=== PATIENT | female | born 1995 | race Caucasian/White ===

== ENCOUNTER 2019-06-03 12:13 | Emergency (ER) | payer OTHER, SELFPAY ==
[2019-06-03 12:32] VITALS: BP 136/90; PULSE 110; RESP 18; TEMP 38.1; O2SAT 99
--- NOTE | 2019-06-03 15:47 | ED.URI ---
HPI - URI/Sore Throat General Chief Complaint: Upper Respiratory Infection Stated Complaint: fever/chills Time Seen by Provider: 06/03/19 13:27 Source: patient Mode of arrival: ambulatory Limitations: no limitations History of Present Illness HPI Narrative: Patient presents with chief complaint of sore throat, intermittent fever and body aches over the past week. Patient states that she saw her primary care who tested her for strep and states that it was sent for culture which she called and found out was negative. Patient states that she was also tested for influenza which she was told was negative at that time. Patient reports she has white patches on her throat and that it is sore. Patient does not have muffled or hoarse voice. Patient states the sore throat has affected her sleep. Patient denies vomiting or diarrhea. Patient denies she denies recent travel out of the country or known exposure to a person with coronavirus. Related Data Home Medications Medication Instructions Recorded Confirmed amoxicillin 06/03/19 Allergies Allergy/AdvReac Type Severity Reaction Status Date / Time No Known Allergies Allergy Verified 06/03/19 12:35 Review of Systems Review of Systems: Narrative: CONSTITUTIONAL: Reports intermittent fever, chills, denies sweats. EYES: Denies visual changes, redness, or discharge. ENT: Reports congestion, sore throat, denies otalgia. CARDIOVASCULAR: Denies chest pain, palpitations, or edema. RESPIRATORY: Denies cough or dyspnea. GASTROINTESTINAL: Denies abdominal pain, nausea, vomiting, or diarrhea. GENITOURINARY: Denies dysuria or hematuria. SKIN: Denies rash or itching. MUSCULOSKELETAL: Denies back pain, joint pain, or myalgia. NEUROLOGIC: Denies headache, numbness, dizziness, or weakness. PSYCHIATRIC: Denies anxiety or depression. PMFSH Social History Social History Gender identity (if verbalized by the patient): Female Exam Narrative: Exam Narrative: GENERAL: Well-appearing, well-nourished, and in no acute distress. HEAD: Normocephalic, atraumatic. EYES: PERRLA and EOMI. ENT: Nares clear, no rhinorrhea or epistaxis. Mucous membranes moist. Oropharynx with bilateral tonsillar hypertrophy and exudate. No uvular deviation bilateral TMs pearly lenz nonbulging NECK: Supple. No adenopathy or masses. No carotid bruits or JVD CHEST: Clear to auscultation. No respiratory distress. No wheezes rales or rhonchi HEART: Regular rate and rhythm. Normal peripheral pulses. EXTREMITIES: Normal range of motion. No edema. SKIN: Warm, dry, no rash. NEURO: No focal deficits. Alert and oriented x3. PSYCH: Normal mood and affect. Course Vital Signs Vital signs: Vital Signs Temperature 100.6 F H 06/03/19 12:32 Pulse Rate 110 H 06/03/19 12:32 Respiratory Rate 18 06/03/19 12:32 Blood Pressure 136/90 06/03/19 12:32 Pulse Oximetry 99 06/03/19 12:32 Temperature 100.6 F H 06/03/19 12:32 Pulse Rate 110 H 06/03/19 12:32 Respiratory Rate 18 06/03/19 12:32 Blood Pressure 136/90 06/03/19 12:32 Pulse Oximetry 99 06/03/19 12:32 MDM - URI/Sore Throat MDM Narrative Medical decision making narrative: Due to patient's erythematous tonsils with bilateral exudates. I have offered the patient mono testing as she has already tested negative for strep and influenza twice. Patient was also treated with amoxicillin by her primary care. patient declines mono testing. Patient requesting medication to help with throat swelling. Patient will give one-time dose of Decadron. Patient is able to handle her own secretions and is not hoarse or in tripod position. Patient is in no distress. Discussed with patient symptomatic treatment and follow-up with her primary care. Discussed with patient no contact sports due to possible mononucleosis infection. Patient states that she did have mono once in the past when she was a teenager. Differential Diagnosis Differential diagnosis: Likely upper r
== END 2019-06-03 16:32 | disposition home or self-care (01) ==
PROVIDERS: Emergency Provider Emergency Medicine; PCP Family Medicine
DX: B34.9 Viral infection, unspecified (principal)
CPT/HCPCS: 87081; 87804; 87880; 96372; 99283; J1100

== ENCOUNTER 2019-08-07 00:21 | Outpatient (CLI) | payer BC, SELFPAY | END 2019-08-07 00:22 | disposition home or self-care (01) | LOC: ANHCOVIDDT 00:22 | PROVIDERS: PCP Family Medicine; Visit Provider Otolaryngology | DX: Z01.812 Encounter for preprocedural laboratory examination (principal); Z11.59 Encounter for screening for other viral diseases | CPT/HCPCS: 87635; C9803; U0003 ==

== ENCOUNTER 2019-08-10 00:48 | Day surgery (SDC) | payer BC, SELFPAY ==
--- NOTE | 2019-08-03 11:59 | P.HP_ITS ---
History of Present Illness History of Present Illness Consent: Risks, benefits, and alternatives have been discussed and questions answered. Patient agrees to proceed with procedure. 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[employer] All systems reviewed & are unremarkable except as noted in HPI and below PMFSH Social History Social History Gender identity (if verbalized by the patient): Female Meds Home Medications and Allergies Home Medications Medication Instructions Recorded Confirmed Type alprazolam 0.5 mg tablet 0.5 mg PO TID 06/28/19 History elagolix 200 mg tablet 200 mg PO BID 06/28/19 History levonorgestrel 20 mcg/24 hours (5 1 device I-UTERINE ONCE 06/28/19 History yrs) 52 mg intrauterine device amoxicillin 500 mg capsule 500 mg PO Q8H #30 cap 07/22/19 Rx Allergies Allergy/AdvReac Type Severity Reaction Status Date / Time No Known Allergies Allergy Verified 06/28/19 13:11 Exam 2 HENMT: Other: has examination reveals enlarged tonsils they are markedly cryptic in nature mouth oropharynx otherwise is normal tongue is normal chest clear hilar murmurs Abusin soft tissues Zaiz negative hypertrophic tonsils and adenoids chronic tonsillitis plan tonsillectomy risks procedure been explained consent obtained
[2019-08-04 13:26] VITALS: BMI 35.4
--- NOTE | 2019-08-09 06:45 | P.HP_ITS ---
History of Present Illness History of Present Illness Consent: Risks, benefits, and alternatives have been discussed and questions answered. Patient agrees to proceed with procedure. Chief complaint: Chronic Tonsillitis/ Nasal Septal Deviation Narrative: Ana Hollis is a 24 year old female [facility] Social History Social History Gender identity (if verbalized by the patient): Female Meds Home Medications and Allergies Home Medications Medication Instructions Recorded Confirmed Type alprazolam 0.5 mg tablet 0.5 mg PO TID PRN 06/28/19 08/10/19 History elagolix 200 mg tablet 200 mg PO BID 06/28/19 08/10/19 History levonorgestrel 20 mcg/24 hours (5 1 device I-UTERINE ONCE 06/28/19 08/04/19 History yrs) 52 mg intrauterine device estradiol [Imvexxy Starter Pack] 10 mcg VAGINAL DAILY 08/04/19 08/10/19 History Allergies Allergy/AdvReac Type Severity Reaction Status Date / Time No Known Allergies Allergy Verified 08/10/19 06:47 Assessment and Plan Assessment and plan (1) Chronic tonsillitis: Code(s): J35.01 - Chronic tonsillitis Status: Acute Assessment and Plan: tonsillectomy septoplasty (2) Chronic sinusitis: Code(s): J32.9 - Chronic sinusitis, unspecified Status: Acute
--- NOTE | 2019-08-09 07:13 | WPDHPUPDATE1 ---
History and Physical Update Update Date/Time: 08/09/19 07:13 History and Physical has been reviewed, including an updated exam of the patient. There are NO changes in the patient's condition. Risks, benefits, and alternatives have been discussed and questions answered. Patient agrees to proceed with procedure.
--- NOTE | 2019-08-09 07:15 | WPDHPUPDATE1 ---
History and Physical Update Update Date/Time: 08/09/19 07:15 History and Physical has been reviewed, including an updated exam of the patient. There are NO changes in the patient's condition. Risks, benefits, and alternatives have been discussed and questions answered. Patient agrees to proceed with procedure.
[2019-08-10] VITALS (8 sets, daily range): BP systolic 104–150; BP diastolic 69–91; PULSE 79–98; RESP 12–20; TEMP 36.3–36.8; O2SAT 96–100
--- NOTE | 2019-08-10 06:32 | WPDHPUPDATE1 ---
History and Physical Update Update Date/Time: 08/10/19 06:32 History and Physical has been reviewed, including an updated exam of the patient. There are NO changes in the patient's condition. Risks, benefits, and alternatives have been discussed and questions answered. Patient agrees to proceed with procedure.
[2019-08-10] MEDS: LACTATED RINGERS 1,000 ML 30 ML IV CONT ×2 (07:00→09:04)
--- NOTE | 2019-08-10 07:45 | WPDANESEPPF ---
Anes - Initial Pre Proc Eval Procedure: Operation Date: 08/10/19 08:30 Proposed Procedures p Tonsillectomy - Adam Shen MD s Septoplasty - Adam Shen MD Date/Time: 08/10/19 07:45 Surgeon: Adam Shen MD Pre Op Diagnosis: Chronic Tonsillitis/ Nasal Septal Deviation Patient Data Age: 24 Gender: F Height: 5 ft 3 in Weight: 91.6 kg Last Vital Signs Temp 36.3 C L 08/10/19 07:12 Pulse 95 08/10/19 07:12 Resp 16 08/10/19 07:12 BP 129/83 08/10/19 07:12 Pulse Ox 100 08/10/19 07:12 Allergies Allergy/AdvReac Type Severity Reaction Status Date / Time No Known Allergies Allergy Verified 08/10/19 06:47 Home Medications Medication Instructions Recorded Confirmed Type alprazolam 0.5 mg tablet 0.5 mg PO TID PRN 06/28/19 08/10/19 History elagolix 200 mg tablet 200 mg PO BID 06/28/19 08/10/19 History levonorgestrel 20 mcg/24 hours (5 1 device I-UTERINE ONCE 06/28/19 08/04/19 History yrs) 52 mg intrauterine device estradiol [Imvexxy Starter Pack] 10 mcg VAGINAL DAILY 08/04/19 08/10/19 History Patient hx anesthesia problems: none Family hx anesthesia problems: none PMFSH Past Medical History Medical History Anxiety Depression Social History Social History Gender identity (if verbalized by the patient): Female Anes - Eval Final PreProcedure Day of Procedure 08/10/19 07:45 Patient weight: obese Heart: regular rate and rhythm Lungs: clear to auscultation Airway: Mallampati scale class II Last oral intake: >/= 8 hours ASA classification: II Emergent: no Anesthetic plan: proceed Anesthesia type and monitoring: general ETT and standard monitoring Informed Consent: The patient's anesthetic plan and its attendant risks and benefits were discussed with the patient/family/POA. Questions were solicited and answers provided to the satisfaction of the patient/family/POA.
[2019-08-10] MEDS: LIDO 1%/EPINEPHRINE 1:100,000 20 ML VIAL 3 ML INFILTRATE (08:32)
--- NOTE | 2019-08-10 08:57 | PM.PROC ---
Procedure Note - Detailed Date of procedure: 08/10/19 Pre-op diagnosis: Chronic Tonsillitis/ Nasal Septal Deviation Post-op diagnosis: same Procedure performed: Tonsillectomy and septoplasty Description of procedure: Patient was prepped and draped in usual fashion after induction of anesthesia. The McIvor mouth gag was inserted. The tonsils were removed dissection technique hemostasis was obtained electrocautery. The mouth was inspected for bleeding. When stablized patient was awaken and brought to the recovery room in good condition. The septum was injected with xylocaine with adrenaline. A right nurys transfix transfix incision was made anterior tunnels elevated a piece of anterior septum was removed closed with 2 0 chromic and sponge placed in on each side Anesthesia: GLMA Surgeon: Adam Shen MD Estimated blood loss (mL): 15 Drains: No Packing: No Pathology: none sent Complications: No immediate complications Condition: stable Disposition: PACU
--- NOTE | 2019-08-10 10:22 | SUR.PHASEII ---
1022 called mom with update on pt condition
== END 2019-08-10 11:30 | disposition home or self-care (01) ==
PROVIDERS: PCP Family Medicine; Visit Provider Otolaryngology
PROC: (CPT 42826; principal; 2019-08-10 08:30)
PROC: (CPT 30520; 2019-08-10 08:30)
DX: J35.01 Chronic tonsillitis (principal); J34.2 Deviated nasal septum; F41.8 Other specified anxiety disorders; Z68.35 Body mass index [BMI] 35.0-35.9, adult
CPT/HCPCS: 42826; 30520; 88302; 88304; A9270; J0131; J0330; J1100; J2001; J2250; J2405; J2704; J3010; J7120

== ENCOUNTER 2020-06-08 15:45 | Outpatient (CLI) | payer BC, SELFPAY ==
--- NOTE | ~2020-06-08 | US_ITS ---
US pelvic complete w TV DATE: 06/08/2020 16:05 INDICATION: Missing IUD string. Pelvic pain. TECHNIQUE: Real-time imaging via transabdominal and transvaginal approaches COMPARISON: None FINDINGS: The uterus measures 7 cm height and 2.8 cm AP and 4.2 cm transverse diameter. IUD is noted within endometrial cavity. Right ovary 2.3 x 2.6 x 2.4 cm, with vascular flow Left ovary 3.6 x 1.8 x 2 cm, with vascular flow Mild free fluid in right adnexa. IMPRESSION: IUD within endometrial cavity Reviewed, dictated and finalized at [facility] Reviewed, dictated and finalized at [facility].
== END 2020-06-08 15:46 ==
DX: T83.32XA Displacement of intrauterine contraceptive device, initial encounter (principal)
CPT/HCPCS: 76830; 76856

== ENCOUNTER 2020-11-13 10:57 | Outpatient (CLI) | payer BC, SELFPAY ==
--- NOTE | ~2020-11-13 | US_ITS ---
EXAMINATION: US pelvic complete EXAM DATE: 11/13/2020 11:31 INDICATION: Irregular vaginal bleeding. IUD. TECHNIQUE: Pelvic transabdominal sonogram was performed. There are multiple grayscale and Doppler im ages available for interpretation. Comparison is made to prior examination from 06/03/2020. FINDINGS: Uterus measures 6.8 x 3.6 x 4.6 cm, with IUD centrally located inside the endometrial cavi ty. Endometrial stripe measures 5-6 mm, within normal limits. There is no free pelvic fluid. Right adnexa: The ovary measures 2.7 x 2.0 x 2.1 cm and is morphologically normal. Ovarian vascular f low confirmed. Left adnexa: The ovary measures 3.5 x 2.1 x 2.3 cm and is morphologically normal. Ovarian vascular fl ow confirmed. IMPRESSION: Unremarkable pelvic ultrasound exam. Reviewed, dictated and finalized at [facility].
== END 2020-11-13 10:58 | disposition home or self-care (01) ==
PROVIDERS: PCP Family Medicine
DX: N92.6 Irregular menstruation, unspecified (principal)
CPT/HCPCS: 76856

== ENCOUNTER 2020-12-26 07:29 | Emergency (ER) | payer BC, SELFPAY ==
[2020-12-26 07:44] VITALS: BP 133/78; PULSE 95; RESP 16; TEMP 36.6; O2SAT 97
--- NOTE | 2020-12-26 07:54 | ED.ABDPAIN ---
HPI - Abdominal Pain General Chief Complaint: Nausea/Vomiting/Diarrhea Stated Complaint: N/V x 2 days Time Seen by Provider: 12/26/20 07:43 Source: patient Mode of arrival: ambulatory Limitations: no limitations History of Present Illness HPI narrative: 25-year-old female Complains of a nearly 2-day history of nausea vomiting and diarrhea No fever, no abdominal pain No blood in the stool She did not have any suspect food ingestions that she knows of and no ill contacts And no recent change her medications She took Zofran at home which helped slightly Also after about a day of the nausea and vomiting she has had urticaria That is present somewhat generalized but seems to be most pronounced along the inguinal creases No associated wheezing She does have a history of irritable bowel, no history of allergies that she knows of Related Data Home Medications Medication Instructions Recorded Confirmed alprazolam 0.5 mg tablet 0.5 mg PO TID PRN 06/28/19 08/10/19 elagolix 200 mg tablet 200 mg PO BID 06/28/19 08/10/19 Imvexxy Starter Pack 10 mcg VAGINAL DAILY 08/04/19 08/10/19 bupropion HCl [Wellbutrin XL] 300 mg PO QAM 12/26/20 12/26/20 duloxetine [Cymbalta] 60 mg PO DAILY 12/26/20 lisdexamfetamine [Vyvanse] 60 mg PO DAILY 12/26/20 Allergies Allergy/AdvReac Type Severity Reaction Status Date / Time No Known Allergies Allergy Verified 12/26/20 07:45 Review of Systems Review of Systems: All systems reviewed & are unremarkable except as noted in HPI and below Constitutional: Constitutional: Reports no additional constitutional complaints, Denies chills, Denies fever(s) and Denies headache(s) Eyes: Eyes: Reports no additional eye complaints and Denies change in vision ENT: Denies headache(s) and Denies sore throat Cardiovascular: Cardiovascular: Denies chest pain and Denies dyspnea Respiratory: Respiratory: Denies wheezing Gastrointestinal: Gastrointestinal: Denies abdominal pain, Reports diarrhea, Reports nausea and Reports vomiting Genitourinary: Genitourinary: Denies hematuria, Denies urinary frequency and Denies dysuria Musculoskeletal: Musculoskeletal: Denies deformity, Denies arthralgias, Denies joint swelling and Denies numbness Integumentary/Breasts: Skin/Breast: Reports pruritus, Reports rash and Denies wounds Neurologic: Denies headache(s), Denies focal weakness and Denies numbness Psychiatric: Psychiatric: Reports no additional psychiatric complaints Endocrine: Endocrine: Reports no additional endocrine complaints Hematologic/Lymphatic: Hematologic/Lymphatic: Reports no additional hematologic/lymphatic complaints Allergic/Immunologic: Allergic/Immunologic: Reports no additional allergic/immunologic complaints PMFSH Past Medical History Medical History (Updated 12/26/20 @ 11:02 by Raghav An MD) Anxiety Depression Social History Social History Gender identity (if verbalized by the patient): Female Exam Const: General: cooperative, healthy appearing, no acute distress and alert Orientation/consciousness: patient oriented x3 (alert) HENMT: Head: normal to inspection, normocephalic and atraumatic Ears: external ears normal General nose exam: no epistaxis Eyes: Conjunctivae: conjunctivae normal EOM: EOMs intact bilaterally Neck: Neck: normal visual inspection, supple and no JVD Resp: Effort & Inspection: normal respiratory effort and not labored Auscultation: other (BS =) GI: Inspection: non-distended GI Palp: Yes Soft to palpation, No Tenderness to palpation present (GI), No Guarding due to palpation present (GI) and No Rebound tenderness present Skin: General skin exam: no rashes or lesions noted Other: Urticaria present Neuro: General: patient oriented x3 (alert) and moves all extremities Speech: normal speech Extrem: General: normal to inspection and no pedal edema Psych: Affect: normal affect C
[2020-12-26 07:57] LABS: Basophils Percent Auto 0.1 % (0.2-1.2); Eosinophils Absolute Auto 0.1 K/mm3 (0-0.3); Eosinophils Percent Auto 0.3 % (0-4.4); Hematocrit 46.7 % (37.0-47.0); Hemoglobin 16.2 g/dL (12.0-15.0); Immature Granulocyte Absolute 0.08 K/mm3 (0.00-0.031); Immature Granulocyte Percent A 0.4 % (0-0.5); Lymphocytes Absolute Auto 1.35 K/mm3 (0.9-3.2); Lymphocytes Percent Auto 7.4 % (18.3-44.2); Mean Corpuscular HGB Conc 34.7 g/dl (32-36); Mean Corpuscular Volume 92.1 fl (80-100); Mean Platelet Volume 9.5 fl (7.4-10.4); Monocytes Absolute Auto 0.7 K/mm3 (0.1-0.6); Monocytes Percent Auto 3.9 % (2.6-8.5); Neutrophils Absolute Auto 15.9 K/mm3 (1.3-6.7); Neutrophils Percent Auto 87.9 % (45.5-73.1); Platelet Count Result 362 k/mm3 (150-375); Red Blood Count 5.07 M/mm3 (4.2-5.4); Red Cell Distribution Width 11.8 % (11.5-14.5); White Blood Count 18.1 K/mm3 (4.5-10.0)
[2020-12-26 08:13] LABS: Alanine Aminotransferase 17 U/L (4-35); Albumin Level 5.1 g/dL (3.5-5.1); Alkaline Phosphatase 72 U/L (38-126); Anion Gap 13 mmol/L (8-16); Aspartate Amino Transferase 22 U/L (14-36); Bilirubin,Total 0.5 mg/dL (0.2-1.3); Blood Urea Nitrogen 11 mg/dL (7-17); Calcium 9.7 mg/dL (8.4-10.2); Carbon Dioxide 23 mmol/L (22-30); Chloride 106 mmol/L (98-107); Estimated CRCL calculation 98 ml/min; Estimated Glomerular Filt Rate > 60; Glucose 133 mg/dL (65-110); Lipase 111 U/L (23-300); Potassium 3.6 mmol/L (3.4-5.0); Sodium 142 mmol/L (137-145)
[2020-12-26 08:55] LABS: Add Urine Microscopic? YES; Appearance Urine Cloudy (Clear); Bacteria Urine Trace /hpf; Bilirubin Urine Negative (Negative); Blood Urine 2+ (Negative); Color Urine Amber (Yellow); Glucose Urine UA Negative (Negative); Ketones Urine Negative (Negative); Leukocyte Esterase Ur 2+ LEU/UL (Negative); Mucus Urine Heavy /lpf; Nitrate Urine Negative (Negative); Protein Urine 2+ mg/dL (Negative); RBC Urine 21-50 /hpf (0-2); Specific Grav Ur 1.029 (1.001-1.035); Squamous Epithelial Cell Urine Many /hpf (Few); Urobilinogen Urine Negative mg/dL (<2.0); WBC Urine >75 /hpf
[2020-12-26] MEDS: LACTATED RINGERS 1,000 ML 999 ML IV CONT (09:29)
[2020-12-26] MEDS: FAMOTIDINE 20 MG/2 ML VIAL 40 MG IV PUSH (09:30)
[2020-12-26] MEDS: diphenhydrAMINE HCl INJ 50 MG/ML VIAL IV PUSH (09:31)
[2020-12-26] MEDS: PROCHLORPERAZINE EDISYLATE 10 MG/2 ML VIAL IV PUSH (09:35)
--- NOTE | 2020-12-26 10:09 | PC.NURSE ---
lab contacted about missing results states will be releasing soon.
[2020-12-26 10:47] VITALS: BP 121/91; PULSE 73; RESP 16
== END 2020-12-26 11:22 | disposition home or self-care (01) ==
PROVIDERS: Emergency Provider Emergency Medicine; PCP Family Medicine
DX: N12 Tubulo-interstitial nephritis, not specified as acute or chronic (principal); L50.9 Urticaria, unspecified; F41.9 Anxiety disorder, unspecified; F32.A Depression, unspecified
CPT/HCPCS: 36415; 80053; 81001; 81025; 83690; 85025; 87086; 87088; 96361; 96365; 96375; 99284; J0696; J0780; J1100; J1200; J7120

== ENCOUNTER 2022-12-01 15:48 | Emergency (ER) | payer BC, SELFPAY ==
[2022-12-01 15:48] VITALS: BP 146/71; PULSE 97; RESP 20; TEMP 36.7; O2SAT 100
[2022-12-01 17:04] LABS: Appearance Urine Cloudy (Clear); Bacteria Urine None Seen /hpf; Bilirubin Urine Negative (Negative); Blood Urine 3+ (Negative); Color Urine Yellow (Yellow); Glucose Urine UA Negative (Negative); Ketones Urine Trace mg/dL (Negative); Leukocyte Esterase Ur 2+ LEU/UL (Negative); Mucus Urine Present /lpf; Need Manual Microscopic Reviewed; Nitrate Urine Negative (Negative); Non Pathogenic Casts 0-2; Protein Urine 2+ mg/dL (Negative); RBC Urine >100 /hpf (0-2); Specific Grav Ur 1.036 (1.001-1.035); Squamous Epithelial Cell Urine Few /hpf (Few); WBC Urine >100 /hpf
[2022-12-01 17:05] LABS: Add Urine Microscopic? YES
--- NOTE | 2022-12-01 18:36 | ED.FEMALEGU ---
HPI - Female Genitourinary General Chief complaint: Urogenital-Female Stated complaint: vaginal papin Time Seen by Provider: 12/01/22 18:01 Source: patient Mode of arrival: ambulatory Limitations: no limitations History of Present Illness HPI Narrative: This is a 27-year-old female who presents to the ED with chief complaint of vaginal pain for 5 days. She initially thought it was UTI because she was having urinary urgency, frequency and pain with urination. She reports she is having pelvic pain now that is described as burning and occasionally itchy. Denies any specific discharge. She does endorse that it feels like tissue is coming out at times. Related Data Home Medications Medication Instructions Recorded Confirmed alprazolam 0.5 mg tablet 0.5 mg PO TID PRN Anxiety 06/28/19 08/10/19 elagolix 200 mg tablet (Orilissa) 200 mg PO BID 06/28/19 08/10/19 estradiol 10 mcg vaginal insert, 10 mcg vaginal DAILY 08/04/19 08/10/19 in a starter dose pack ([employer] Starter Pack) bupropion HCl 300 mg 24 hr tablet, 300 mg PO QAM 12/26/20 12/26/20 extended release (Wellbutrin XL) duloxetine 60 mg capsule,delayed 60 mg PO DAILY 12/26/20 release (Cymbalta) lisdexamfetamine 60 mg capsule 60 mg PO DAILY 12/26/20 (Vyvanse) Allergies Allergy/AdvReac Type Severity Reaction Status Date / Time No Known Allergies Allergy Verified 12/26/20 07:45 Review of Systems Review of Systems: All systems as dictated in [facility] Past Medical History Medical History (Updated 12/02/22 @ 00:01 by Latisha Wilson) Anxiety Depression Social History Social History Gender identity (if verbalized by the patient): Female Exam Narrative: GENERAL: Well-appearing, well-nourished, and in no acute distress. HEAD: Normocephalic, atraumatic. EYES: PERRLA and EOMI. ENT: Nares clear, no rhinorrhea or epistaxis. Mucous membranes moist. Oropharynx without tonsillar hypertrophy exudate or other lesions. NECK: Supple. No adenopathy or masses. CHEST: No respiratory distress. Clear to auscultation. No wheezes rales or rhonchi HEART: Regular rate and rhythm. No murmur heard. Normal peripheral pulses. ABDOMEN: No flank tenderness bilaterally. Soft, grossly nontender, nondistended, normal active bowel sounds. Negative peritoneal signs. MSK: Normal range of motion. No edema. SKIN: Warm, dry, no rash. NEURO: Alert and oriented x3. No focal deficits. PSYCH: Anxious mood. Appropriate affect. Pelvic exam done with female RN signal and communications maintainer present: No mucosal lesions No pain with speculum exam. Scant amount of vaginal blood and discharge Course Vital Signs Vital signs: Vital Signs Temperature 98.0 F 12/01/22 15:48 Pulse Rate 97 12/01/22 15:48 Respiratory Rate 12/01/22 15:48 Blood Pressure 146/71 H 12/01/22 15:48 Pulse Oximetry 100 12/01/22 15:48 Oxygen Delivery Room Air 12/01/22 15:48 Temperature 98.0 F 12/01/22 15:48 Pulse Rate 97 12/01/22 15:48 Respiratory Rate 20 12/01/22 15:48 Blood Pressure 146/71 H 12/01/22 15:48 Pulse Oximetry 100 12/01/22 15:48 Oxygen Delivery Room Air 12/01/22 15:48 MDM - Female Genitourinary MDM Narrative Medical decision making narrative: This is a 27-year-old female who presents to the ED for chief complaint of vaginal pain and urinary symptoms. Vitals are normal. Exam shows no abdominal or flank tenderness. Pelvic exam shows scant amount of discharge and blood. No lesions. No evidence of any prolapse which is something she was specifically worried about. STD swabs are negative. Symptoms are consistent with uncomplicated UTI. She has history of endometriosis and that may be at play as well. Abdominal exam remains benign. She is ready to go home. Prescription for Keflex given. Referral to [facility] given as well. Pt will be discharged in stable condition. Return precautions given and sup
[2022-12-01 20:44] LABS: Trichomonas Vag PCR NOT DETECTED (NOT DETECTE)
[2022-12-01 21:07] LABS: Chlamydia trachomatis NOT DETECTED (NOT DETECTE); Neisseria gonorrhoeae PCR NOT DETECTED (NOT DETECTE)
[2022-12-01] MEDS: CEPHALEXIN 500 MG CAPSULE PO (21:33)
[2022-12-01] MEDS: KETOROLAC 30 MG/ML VIAL (*BKC) IM (21:33)
== END 2022-12-01 21:41 | disposition home or self-care (01) ==
PROVIDERS: Preventive Medicine Aerospace Medicine; Emergency Provider Physician Assistant; PCP Family Medicine
DX: N39.0 Urinary tract infection, site not specified (principal); F41.9 Anxiety disorder, unspecified; F32.A Depression, unspecified
CPT/HCPCS: 81001; 81025; 87077; 87086; 87186; 87491; 87591; 87661; 96372; 99284; A9270; J1885

== ENCOUNTER 2022-12-10 10:30 | Outpatient (CLI) | payer BC, SELFPAY ==
--- NOTE | ~2022-12-10 | MR_ITS ---
MRI of the brain Clinical History: Migraine headache Technique: Axial and sagittal T1-weighted images were acquired. These were followed by axial T2-weigh martha, diffusion weighted, gradient, and FLAIR images. Following intravenous administration of 13 cc Mu ltiHance gadolinium, T1-weighted fat-sat imaging was performed in the axial and coronal planes. Findings: No abnormal signal seen in the brain parenchyma. No acute infarct, intracranial hemorrhage, or mass lesion identified. Ventricles and subarachnoid spaces are unremarkable. Orbits are unremarkable. Paranasal sinuses and l eft mastoid air cells are clear. There is minimal fluid in right mastoid air cells. Major intracrania l flow voids appear intact. Sagittal midline structures are intact. No abnormal postcontrast enhancement identified. IMPRESSION: No intracranial abnormality. Minimal fluid in right mastoid air cells. Reviewed, dictated and finalized at location .
== END 2022-12-10 10:31 | disposition home or self-care (01) ==
PROVIDERS: PCP Family Medicine; Visit Provider Clinical Nurse Specialist Adult Health
DX: G43.111 Migraine with aura, intractable, with status migrainosus (principal)
CPT/HCPCS: 70553; A9577

== ENCOUNTER 2024-07-10 12:18 | Emergency (ER) | payer SELFPAY ==
--- NOTE | ~2024-07-10 | XR_ITS ---
EXAMINATION: XR hand LT min 3V, XR wrist LT min 3V DATE: 07/10/2024 12:48 INDICATION: Left hand and wrist injury post fall TECHNIQUE: 1. Posteroanterior, ulnar deviation, oblique, and lateral views of the left wrist were obtained. 2. Dorsal palmar, oblique and lateral views of the left hand were obtained. COMPARISON: None FINDINGS: Alignment of the left hand and wrist is normal. No fracture identified. Joint spaces are normal. Th ere is prominent soft tissue swelling about the dorsal aspect of the distal forearm, wrist and carpus . IMPRESSION: 1. No osseous abnormality at the left hand or wrist. Reviewed, dictated and finalized at location A. IMPRESSION: 1. No osseous abnormality at the left hand or wrist.
--- OUTSIDE RECORDS SUMMARY | 2024-07-10 12:21 | XMS_ITS | Clinical Summary ---
Author Organization [facility] Address [address] [place] [address] Phone Care Team Providers Care Shipping And Receiving Weigher Name Role Phone Sindhu Amayadarci RAMACHANDRAN Primary Care Provider [phone] Francie Martini MICROSYSTEMS ENGINEER, VIDEO EFFECTS EDITOR Unavailable [phone] Allergies No known active allergies Medications methylPREDNISol one (MEDROL DOSPACK) 4 MG Tablet Therapy Pack Use as per instructions on package. 21 Tablet 3 Active Additional Information Patient not taking.Reported on 01/21/2023 Rizatriptan Benzoate 10 MG TabletIndicatio ns:Intractable migraine with aura with status migrainosus,Personnel Training Officer nial neuralgia Take 1 Tablet by mouth once as needed for Headaches. May repeat in 2 hours in needed 10 Tablet 2 3 Active amitriptyline (ELAVIL) 25 MG TabletIndicatio ns:Intractable migraine with aura with status migrainosus,Personnel Training Officer nial neuralgia,Other insomnia Take 1 Tablet by mouth nightly. 90 Tablet 3 Active Active Problems No known active problems Social History Tobacco Use Types Packs/Day Years Used Date Smoking Tobacco: Never Smokeless Tobacco: Never Tobacco Cessation:Counseling Given: Not Answered Alcohol Use Standard Drinks/Week Comments Yes 0 (1 standard drink = 0.6 oz pur e alcohol) moderate Comments Unknown Sex and Gender Information Value Date Recorded Sex Assigned at Not on file Legal Sex Female 2:54 PM CDT Gender Identity Not on file Sexual Orientation Not on file Last Filed Vital Signs Vital Sign Reading Time Taken Comments Blood Pressure 118/78 01/21/2023 9:09 AM CDT Pulse 99 01/21/2023 9:09 AM CDT Temperature 35.9 C (96.6 F) 01/21/2023 9:09 AM CDT Respiratory Rate 18 01/21/2023 9:09 AM CDT Oxygen Saturation 100% 01/21/2023 9:09 AM CDT Inhaled Oxygen Concentration - - Weight 82.6 kg (182 lb) 01/21/2023 9:09 AM CDT Height 160 cm (5' 3 ) 01/21/2023 9:09 AM CDT Body Mass Index 32.24 01/21/2023 9:09 AM CDT Plan of Treatment Health Maintenance Due Date Last Done Comments Hepatitis C Virus (HCV) Screening 1993 Pap Smear 2014 Cervical Cancer Screening (CCS) 06/21/2023 HPV/Cotest 06/21/2023 Influenza Immunization (#1) 2023 SARS-COV-2 Immunization ( season) 2023 Respiratory Syncytial Virus (RSV) Immunization (Adult) (1 - 1-dose 75+ series) 2068 Hepatitis B Immunization Completed 995, 1993, 1993 DTaP/Tdap/Td Immunization Discontinued 2004, 09/28/1998, 10/16/1994, Additional history exists TdaP Immunization Completed 03/05/2005 Meningococcal Immunization (ACWY) Aged Out No longer eligible based on patient's age to complete this topic Pneumococcal Immunization Combined Aged Out No longer eligible based on patient's age to complete this topic Rotavirus Immunization Aged Out No lo nger eligible based on patient's age to complete this topic Insurance [facility] Care Teams Shipping And Receiving Weigher Relationship Specialty Start Date End Date Palmira Amaya PAC [address] [place] [address] PCP - General Physician Reporting Specialist 09/27/22 Francie Martini, MICROSYSTEMS ENGINEER, VIDEO EFFECTS EDITOR [address] [place] [address] Nurse Practitioner Advanced Practice Nurse 11/21/22
--- OUTSIDE RECORDS SUMMARY | 2024-07-10 12:21 | XMS_ITS | Patient Health Record ---
Author Organization [facility] Address [address] [place] [address] Care Team Providers Care Food Packer Name Role Phone Migration, Provider Unavailable Unavailable Reason For Referral No Information Medications Medication SIG (Take, Route, Frequency, Duration) Notes Start Date End Date Status SUMAtriptan Succinate 50 MG Oral 08/13/2022 Active Amphetamine-Dextroamp het ER 20 MG Oral 08/13/2022 Active L-methylfolate Calcium 7.5 mg Oral 08/13/2022 Active predniSONE 20 MG Oral 08/13/2022 Ac tive metroNIDAZOLE 500 MG Oral 08/13/2022 Active Ergocalciferol 1.25 MG (82205 UT) Oral 08/13/2022 Active ALPRAZolam 1 MG Oral 08/13/2022 Act ariel Fluconazole 150 MG Oral 08/13/2022 Active Saxenda 18 MG/3ML Subcutaneous 08/13/2022 Active CEFIXIME 400 MG CAPSULE *Reorder from [facility] for eRx and Interaction Alerts* 08/13/2022 Active QUEtiapine Fumarate 100 MG Oral 08/13/2022 Active Ondansetron 4 MG Oral 08/13/2022 Ac tive Topiramate 25 MG Oral 08/13/2022 Ac tive QUEtiapine Fumarate 25 MG Oral 08/13/2022 Active ULTRA-FINE SHORT PEN NEEDLE 31 gauge x 5/16 MISCELLANEOUS *Reorder from [facility] for eRx and Interaction Alerts* 08/13/2022 Active Norethindrone 0.35 MG Oral 08/13/2022 Active lamoTRIgine 25 MG Oral 08/13/2022 A ctive [place] Carbonate 300 MG Oral 08/13/2022 Active lamoTRIgine 100 MG Oral 08/13/2022 Active [place] Carbonate 150 MG Oral 08/13/2022 Active L-Methylfolate 7.5 MG Oral 08/13/2022 Active traZODone HCl 100 MG Oral 08/13/2022 Active Social History Sex Assigned At : Social History Observation Description Sex Assigned At Female Encounters Encounter Location Date [facility] [place] [id number] [facility] [address] [address] 08/09/2023 Provider Migration [address] [address] 08/10/2023 Provider Migration Plan Of Treatment No Information Insurance Providers Payer Name Payer Address Payer Phone Subscriber Number Group Number Insured Name Patient Relationship to Insured Coverage Start Date Coverage End Date [facility] [address] [place] [phone] [id number] SHAHEEN ALEJANDRO Self - patient is the insured Medical (General) History Surgical History Surgery Date(Month/Year) Endometrial ablation (05726) 03/24/2013 Any surgical history uterine 03/24/2019 Sinus surgery 03/24/2019 Tonsilectomy/adenoids 03/24/2019 Appendectomy (39013) 03/24/2019
--- OUTSIDE RECORDS SUMMARY | 2024-07-10 12:21 | XMS_ITS | Encounter Summary ---
Author Organization [facility] Address [address] [facility] [place] [address] Care Team Providers Care Advertising Operations Manager Name Role Phone Amelia Muñiz MD Primary Care Provider [phone] Reason for Visit * Reason Onset Date Comments POST-OP PROBLEM 01/28/2020 Encounter Details Date Type Department Care Team (Late st Contact Info) Description 01/28/2020 Telephone [facility] [address] [place] [address] Shon Amaro MD [address] [facility] [address] [place] [id number] POST-OP PROBLEM Social History Tobacco Use Types Packs/Day Years Used Date Smoking Tobacco: Never Smokeless Tobacco: Never Alcohol Use Standard Drinks/Week Comments Yes 0 (1 standard drink = 0.6 oz pur e alcohol) Comments No Sex and Gender Information Value Date Recorded Sex Assigned at Not on file Legal Sex Female 7:24 AM CDT Gender Identity Not on file Sexual Orientation Not on file COVID-19 Exposure Response Date Recorded In the last month, have you been in contact with someone who was confirmed or suspected to have Coronavirus / COVID-19? Unable to assess 01/10/2020 11:15 AM CD T documented as of this encounter Miscellaneous Notes * Telephone Encounter - Ivelisse Garzon RN - 01/28/2020 1:47 PM CST RN returned call to patient. Pt reports she only hsa 4 Percocet left so was wondering if she could have a refill of a few more pills? She reports she has been trying to take the Ibuprofen and Tylenoland fill in with the Percocet but sometimes like after she is sleeping the pain is bad so she does have to take it. RN advised some pain is to be expeted but a week out pain should mostly be managed with the Ibuprofen/Tylenol. Advised will check with MD but if patient still having severe pain aftertaking Narcotics would recommend evaluation in the ED. Pt verbalizes understanding. DING REPAIR MAINTENANCE SUPERVISOR * Telephone Encounter - Norah Bradley - 01/28/2020 1:20 PM CST Pt calling to see if she can get 1 or 2 days worth of the Oxycodone. Pt admits to not taking medication as she should. Psych doctor informed pt to reach out to MD. Pt's CB #: [phone] DING REPAIR MAINTENANCE SUPERVISOR documented in this encounter Plan of Treatment Not on file documented as of this encounter Visit Diagnoses Not on filedocumented in this encounter Additional Health Concerns Infection Onset Date Last Indicated Resolved Time COVID-19 Under Investigation 02/08/2020 02/08/2020 02/09/2020 5:28 PM BUILDING REPAIR MAINTENANCE SUPERVISOR COVID-19 Confirmed 02/08/2020 02/08/2020 0 4:35 AM BUILDING REPAIR MAINTENANCE SUPERVISOR COVID-19 Under Investigation 07/19/2020 07/19/2020 07/20/2020 5:33 AM CDT documented as of this encounter Care Teams Advertising Operations Manager Relationship Specialty Start Date End Date Amelia Muñiz MD [address] [place] [address] [place] [address] PCP - General 10/01/19 documented as of this encounter
--- OUTSIDE RECORDS SUMMARY | 2024-07-10 12:21 | XMS_ITS | Data Portability ---
Author Organization [facility] [employer], Main Office Address [address] [place] [address] Assessment No assessment recorded. Plan of Treatment Reminders Order Date Submit Date Provider Last Modified By Organization Details Last Modified Time Details Appointments None recorded. Lab test, urine 2022 023 [email or web address] [facility] [address], [place], [address], 3 09:41:36 CT + NG + TV, DNA, urine/swab [address] (Lab), [address] [place], [address], 3 11:52:52 RPR (rapid plasma reagin), serum [address] (Lab), [address] [place], [address], 3 11:52:53 hsv (1+2) igg Ab, serum [address] (Lab), [address] [place], [address], 3 11:52:53 bacterial vaginosis + vaginitis panel, [facility] [address] [place], [address], 3 18:55:25 HIV (1+2) Ab screen, serum 2022 023 [facility] (Lab), [address] [place], [address], 3 02:15:45 Referral None recorded. Procedures None recorded. Surgeries None recorded. Imaging None recorded. Medication Orders norethindro ne (contracept ariel) 0.[address] [facility][id number], [address], [place], [place], [id number], 3 09:53:36 ketorolac 30 mg/mL (1 mL) injection solution 2022 023 [email or web address] Not available 09:26:11 prednisone 20 mg tablet [address] [facility] #[id number], [address], [place], [id number], 3 08:43:15 Imitrex 50 mg tablet [address] [facility] #[id number], [address], [place], [place], [id number], 3 08:43:58 Patient TargetsNo targets recorded. Patient Instructions Encounter Date Encounter Id Patient Instructions Last Modified By Organization Details Last Modified Time 01/16/2023 [id number] 30 mins of direc t time spent on discussing meds/care plan with patient [email or web address] Not available 01/16/2023 09:53:30 Reason for Referral None Reported. Results Created Date Observation Date Name Description Value Unit Range Abnormal Flag Note LastModifiedBy Organization Detail LastModifiedTime 05/14/1905/14/2022 rapid strep group A, throa t STREP A negati ve Not Available [facility] [address] , [place], [address], 05/13/2022 15:09:45 01/17/20 23 01/16/2023 pregn clemente test, urine HCG negati ve Not Available [facility] [address], [place], [address], 01/16/2023 09:05:57 12/12/19 23 12/10/2022 MRI, brain + brain stem, w/wo contr ast No observ ation record ed. [email or web address], [place], [address], 08/01/2023 09:57:47 Result Notes None recorded. Problems Name Problem SNOMED Code Status Onset Date Resolution Date Notes Provider Name and Address Organization Details Recorded Time Rectal hemorrhage 31450192 Active Not Available [facility] 3 06:43:45 Amenorrhea 98017655 Completed Not Available [facility] 3 06:43:45 Pain in throat 113788838 Active Not Available [facility] 3 06:43:45 Abdominal pain 08176398 Active Not Available [facility] 3 06:43:45 Stiff back 732945619 Active Not Available [facility] 3 06:43:45 Low back pain 891454581 Active Not Available [facility] 3 06:43:45 Depressive disorder 10913228 Active Not Available [facility] 3 06:43:46 Obesity 750585973 Active Not Available [facility] 3 06:43:46 Anxiety 20221566 Active Not Available [facility] 3 06:43:46 56984497 Completed 201711/14/2017 Not Available [facility] 3 06:43:46 Migraine 82906313 Active 2022 [facility] [address], [place], [address] , [facility] 3 08:40:23 Dysuria 79126297 Active 2022 [facility] [address], [place], [address] , [employer] [facility] [employer] 3 12:49:11 Panic attack 942888636 Active 2022 Harjinder GarciaAMY aldana-C [address], [place], [address] , [facility] [employer] [facility] [employer] [facility] 3 08:49:45 Insomnia 841001969 Active 2022 Harjinder AMY Conner-Stefanie [address], [facility] [address], [place], [address] , [employer] [facility] [employer] 3 09:00:03 Problem Notes None recorded. Procedures Surgical History Date Name Laterality Status Provider Name and Address Organization Details Recorded Time laparoscopy completed Not Available [facility] 05/22/2022 06:39:21 nasal septoplasty completed Not Available [facility] 05/22/2022 06:39:21 Tonsillectomy completed Not Available [facility] 05/22/2022 06:39:21 Imaging Results Imaging Date Name Status LastModified by Organiz ation Details LastModified Time 12/10/2022 MRI, brain + brain stem, w/wo contrast completed [address], [place], [address], 08/01/2023 09:57:47 Procedure Notes None recorded. Medical Equipment None Reported. Allergies No known drug allergies Medications Name Sig Start Date Stop Date Status Note LastModified by Organization Details LastModified Time quetiapine 25 mg tablet TAKE 1 TO 2 TABLETS BY MOUTH EVERY NIGHT AT BEDTIME active Not Available Not Available No t Available cyclobenza bryant 10 mg tablet TK 1 T PO TID PRF MUSCLE SPASMS active Not Available Not Available No t Available amoxicilli n 500 mg capsule active Not Available Not Available Not Available medroxypro gesterone 10 mg tablet Take 1 tablet every day by oral route for 10 days. 04/07 completed Not Available Not Available Not Available Mirena 21 mcg/24 hr (up to 8 years) 52 mg intrauteri ne device Take 1 device by intraute rine route. 07/24 completed Not Available Not Available Not Available metformin 500 mg tablet 09/05 completed Not Available Not Available Not Available venlafaxin e ER 37.5 mg capsule,ex tended release 24 hr Take 1 capsule every day by oral route for 30 days. active Not Available Not Available No t Available Aviane 0.1 mg-20 mcg tablet Take 1 tablet every day by oral route. 07/29 completed Not Available Not Available Not Available trazodone 50 mg tablet Take 1 tablet every day by oral route. 09/13 completed Not Available Not Available Not Available sildenafil 50 mg tablet TAKE 1 TABLET BY MOUTH ONCE DAILY NEEDED TAKE ONE HOUR PRIOR TO INTERCOU RSE 07/24 completed Not Available Not Available Not Available azithromyc in 250 mg tablet 2 tabs po qd x 1 day then 1 tab po qd x 4 days 06/01 completed Not Available Not Available Not Available alprazolam 1 mg tablet TAKE 1 TABLET 1 HOURS PRIOR TO MRI AND TAKE SECOND ONE 30 MINUTES PRIOR IF NEEDED active Not Available Not Available No t Available fluconazol e 150 mg tablet Take 1 tablet by oral route as directed for 1 day. active Take second tablet 72 hours later if needed Not Available Not Available Not Available acetaminop hen 120 mg-codeine 12 mg/5 mL oral solution TK 15ML PO Q 4 H PRN active Not Available Not Available No t Available clomiphene citrate 50 mg tablet Take 2 tablets every day by oral route for 5 days. 08/06 completed Not Available Not Available Not Available hydrocodon e 5 mg-acetami nophen 325 mg tablet 12/09 completed Not Available Not Available Not Available prazosin 1 mg capsule TAKE 1 CAPSULE BY MOUTH TWICE DAILY active Not Available Not Available No t Available ondansetro n HCl 8 mg tablet Take 1 tablet 3 times a day by oral route as needed. 07/24 completed Not Available Not Available Not Available naltrexone 50 mg tablet TAKE 1 2 (ONE HALF) TABLET BY MOUTH ONCE DAILY 07/24 completed Not Available Not Available Not Available ondansetro n HCl 4 mg tablet TAKE 1 TABLET BY MOUTH ONCE DAILY NEEDED 07/24 completed Not Available Not Available Not Available famotidine 40 mg tablet TAKE 1 TABLET BY MOUTH EVERY DAY 07/24 completed Not Available Not Available Not Available prednisone 20 mg tablet TAKE 2 TABLETS BY MOUTH EVERY DAY FOR 5 DAYS active Not Available Not Available No t Available rizatripta n 10 mg tablet TAKE 1 TABLET BY MOUTH 1 TIME NEEDED FOR HEADACHE . MAY REPEAT IN 2 HOURS IN NEEDED active Not Available Not Available No t Available sumatripta n 50 mg tablet TAKE 1 TABLET BY MOUTH NEEDED FOR MIGRAINE active Not Available Not Available No t Available penicillin V potassium 500 mg tablet 12/06 completed Not Available Not Available Not Available topiramate 25 mg tablet TAKE 1 TABLET BY MOUTH EVERY DAY active Not Available Not Available No t Available triamcinol one acetonide 0.5 % topical ointment APPLY A SMALL AMOUNT TO AFFECTED AREA TWICE A DAY NEEDED 07/24 completed Not Available Not Available Not Available lithium carbonate 150 mg capsule TAKE 1 CAPSULE BY MOUTH EVERY DAY AT BEDTIME active Not Available Not Available No t Available metronidaz ole 500 mg tablet TAKE 1 TABLET BY MOUTH TWICE DAILY FOR 7 DAYS 03/01 completed Not Available Not Available Not Available phentermin e 37.5 mg tablet TAKE 1 TABLET BY MOUTH ONCE DAILY IN THE MORNING 08/30 completed Not Available Not Available Not Available acetaminop hen 300 mg-codeine 30 mg tablet 09/16 completed Not Available Not Available Not Available prochlorpe razine maleate 10 mg tablet TAKE 1 TABLET BY MOUTH EVERY 6 HOURS NEEDED 07/24 completed Not Available Not Available Not Available sulfametho xazole 800 mg-trimeth oprim 160 mg tablet Take 1 tablet every 12 hours by oral route for 3 days. active Not Available Not Available No t Available acetaminop hen 500 mg tablet TAKE 2 TABLETS BY MOUTH EVERY 6 HOURS NEEDED FOR FEVER OR PAIN active Not Available Not Available No t Available ketorolac 30 mg/mL (1 mL) injection solution Inject 1 mL by intramus cular route. 2022 active Not Available Not Available Not Avai lable lamotrigin e 25 mg tablet active Not Available Not Available Not Available oxycodone- acetaminop hen 5 mg-325 mg tablet TK 1 T PO Q 6 H PRN P active Not Available Not Available No t Available alprazolam 0.5 mg tablet TAKE 1/2 TO 1 TABLET BY MOUTH EVERY DAY NEEDED FOR ANXIETY 09/13 completed Not Available Not Available Not Available amoxicilli n 875 mg tablet TAKE 1 TABLET BY MOUTH TWICE DAILY active Not Available Not Available No t Available alprazolam 0.25 mg tablet Take 1 daily as needed for anxiety 04/02 completed Not Available Not Available Not Available citalopram 20 mg tablet TAKE 1 TABLET BY MOUTH EVERY DAY 09/13 completed Not Available Not Available Not Available amitriptyl ine 25 mg tablet TAKE 1 TABLET BY MOUTH EVERY NIGHT active Not Available Not Available No t Available estradiol 1 mg tablet TAKE 1 TABLET BY MOUTH ONCE DAILY 07/24 completed Not Available Not Available Not Available Nortrel 1/35 (28) 1 mg-35 mcg tablet 09/05 completed Not Available Not Available Not Available Zoloft 50 mg tablet Take 1 tablet every day by oral route for 60 days. 12/09 completed Not Available Not Available Not Available dextroamph etamine-am phetamine ER 20 mg 24hr capsule,ex tend release TAKE 1 CAPSULE BY MOUTH EVERY DAY 09/13 completed Not Available Not Available Not Available trazodone 100 mg tablet TAKE 1 TO 2 TABLETS BY MOUTH EVERY NIGHT AT BEDTIME NEEDED active Not Available Not Available No t Available amitriptyl ine 10 mg tablet TAKE 1 TABLET BY MOUTH EVERY NIGHT active Not Available Not Available No t Available lithium carbonate 300 mg capsule TAKE 1 CAPSULE BY MOUTH EVERY DAY AT BEDTIME active Not Available Not Available No t Available cephalexin 500 mg capsule TAKE 1 CAPSULE BY MOUTH EVERY 8 HOURS FOR 7 DAYS active Not Available Not Available No t Available cyanocobal simmons (vit B-12) 1,000 mcg/mL injection solution INJECT 1 ML ONCE A WEEK FOR 4 DOSES active Not Available Not Available No t Available promethazi ne 25 mg tablet 09/05 completed Not Available Not Available Not Available BD Luer-Riley Syringe 3 mL 25 gauge x 1 USE ONCE A WEEK FOR 4 DOSES active Not Available Not Available No t Available fluoxetine 10 mg capsule 02/10 completed Not Available Not Available Not Available sertraline 25 mg tablet Take 1 tablet every day by oral route. active Not Available Not Available No t Available diclofenac sodium 75 mg tablet,del ayed release Take 1 tablet twice a day by oral route as needed. 02/03 completed Not Available Not Available Not Available hydroxyzin e HCl 25 mg tablet TAKE 1 TABLET BY MOUTH THREE TIMES DAILY NEEDED active Not Available Not Available No t Available Seroquel 100 mg tablet Take 1 tablet every day by oral route. active Not Available Not Available No t Available norethindr one acetate 5 mg tablet 08/19 completed Not Available Not Available Not Available ergocalcif margarita (vitamin D2) 1,250 mcg (50,000 unit) capsule TAKE 1 CAPSULE BY MOUTH EVERY WEEK active Not Available Not Available No t Available zaleplon 5 mg capsule TAKE 1 CAPSULE BY MOUTH EVERY DAY FOR 15 DAYS NEEDED active Not Available Not Available No t Available ibuprofen 600 mg tablet TAKE 1 TABLET BY MOUTH EVERY 6 HOURS NEEDED FOR PAIN active Not Available Not Available No t Available polyethyle ne glycol 3350 17 gram/dose oral powder DISSOLVE 17 GRAMS IN LIQUID AND DRINK BY MOUTH ONCE DAILY. HOLD FOR DIARRHEA active Not Available Not Available No t Available methylpred nisolone 4 mg tablets in a dose pack FOLLOW PACKAGE [employer]IO NS active Not Available Not Available No t Available rizatripta n 5 mg disintegra ting tablet DISSOLVE 1 TABLET ON THE TONGUE 1 TIME NEEDED FOR MIGRAINE active Not Available Not Available No t Available norethindr one (contracep tive) 0.35 mg tablet TAKE 1 TABLET BY MOUTH EVERY DAY active Not Available Not Available No t Available ondansetro n 4 mg disintegra ting tablet DISSOLVE 1 TABLET ON THE TONGUE EVERY 6 HOURS NEEDED FOR NAUSEA OR VOMITING 07/24 completed Not Available Not Available Not Available fluoxetine 20 mg capsule Take 1 capsule every day by oral route for 60 days. 03/10 completed Not Available Not Available Not Available risperidon e 1 mg tablet TAKE 1 TABLET BY MOUTH AT BEDTIME 07/24 completed Not Available Not Available Not Available doxycyclin e hyclate 100 mg tablet Take 1 tablet twice a day by oral route for 7 days. 12/14 completed Not Available Not Available Not Available dicyclomin e 10 mg capsule Take 1 capsule 4 times a day by oral route as needed. 12/06 completed Not Available Not Available Not Available lamotrigin e 100 mg tablet TAKE 1 TABLET BY MOUTH EVERY DAY AT BEDTIME active Not Available Not Available No t Available risperidon e 0.5 mg tablet TAKE 1 TABLET BY MOUTH AT BEDTIME 08/30 completed Not Available Not Available Not Available Seroquel 200 mg tablet Take 1 tablet every day by oral route. 09/13 completed Not Available Not Available Not Available diazepam 5 mg tablet 08/30 completed Not Available Not Available Not Available buspirone 15 mg tablet TAKE 1 TABLET BY MOUTH TWICE DAILY 08/30 completed Not Available Not Available Not Available oxycodone 5 mg tablet TAKE 1 TABLET BY MOUTH EVERY 6 HOURS NEEDED FOR PAIN active Not Available Not Available No t Available Depo-Prove ra 150 mg/mL intramuscu lar syringe Inject 1 mL every 3 months by intramus cular route. 04/09 completed Not Available Not Available Not Available azithromyc in 500 mg tablet TAKE 2 TABLETS BY MOUTH A ONE TIME DOSE 03/01 completed Not Available Not Available Not Available escitalopr am 10 mg tablet 1 po qday active Not Available Not Available No t Available escitalopr am 20 mg tablet Take 1 tablet every day by oral route. active Not Available Not Available No t Available cyclobenza bryant 5 mg tablet Take 1 tablet(s ) 3 TIMES A DAY by oral route as needed for muscle spasms active Not Available Not Available No t Available Microgesti n 04/12 (21) 1 mg-20 mcg tablet 09/05 completed Not Available Not Available Not Available Premarin 1.25 mg tablet TAKE 1 TABLET BY MOUTH ONCE DAILY active Not Available Not Available No t Available bupropion HCl XL 300 mg 24 hr tablet, extended release TAKE 1 TABLET BY MOUTH IN THE MORNING 07/24 completed Not Available Not Available Not Available bupropion HCl XL 150 mg 24 hr tablet, extended release TAKE 1 TABLET BY MOUTH ONCE DAILY IN THE MORNING active Not Available Not Available No t Available 04/12 (28) 1 mg-20 mcg (21)/75 mg (7) tablet TAKE 1 TABLET BY MOUTH ONCE DAILY 07/24 completed Not Available Not Available Not Available hydrocodon e 7.5 mg-acetami nophen 325 mg/15 mL oral solution active Not Available Not Available Not Available nitrofuran toin monohydrat e/macrocry stals 100 mg capsule 12/09 completed Not Available Not Available Not Available duloxetine 20 mg capsule,de layed release TAKE 1 CAPSULE BY MOUTH TWICE DAILY 07/24 completed Not Available Not Available Not Available duloxetine 30 mg capsule,de layed release TAKE 1 CAPSULE BY MOUTH ONCE DAILY 07/24 completed Not Available Not Available Not Available duloxetine 60 mg capsule,de layed release TAKE 1 CAPSULE BY MOUTH ONCE DAILY FOR 30 DAYS 07/24 completed Not Available Not Available Not Available lactulose 10 gram/15 mL oral solution 12/06 completed Not Available Not Available Not Available chlorhexid ine gluconate 0.12 % mouthwash RINSE 1/2 OZ FOR 30 SECONDS TWICE DAILY active Not Available Not Available No t Available 12/09 completed Not Available Not Available Not Available levomefola te calcium 7.5 mg tablet TAKE ONE TABLET BY MOUTH EVERY DAY. active Not Available Not Available No t Available BD Ultra-Fine Short Pen Needle 31 gauge x 08/06 USE DIRECTED active Not Available Not Available No t Available Vyvanse 30 mg capsule TAKE 1 CAPSULE BY MOUTH ONCE DAILY 10/25 completed Not Available Not Available Not Available Vyvanse 70 mg capsule Take 1 capsule every day by oral route. active Not Available Not Available No t Available Vyvanse 60 mg capsule Take 1 capsule every day by oral route. 06/19 completed Not Available Not Available Not Available Vyvanse 40 mg capsule Take 1 capsule every day by oral route. 10/25 completed Not Available Not Available Not Available Pristiq 50 mg tablet,ext ended release Take 1 tablet every day by oral route. 12/06 completed Sample Qty: 21. Not Available Not Available Not Available Gianvi (28) 3 mg-0.02 mg tablet active Not Available Not Available Not Available Vitamin D3 50 mcg (2,000 unit) capsule Take 1 capsule every day by oral route. 07/24 completed Not Available Not Available Not Available Banophen 50 mg capsule TAKE 1 CAPSULE BY MOUTH FOUR TIMES DAILY NEEDED 07/24 completed Not Available Not Available Not Available cefixime 400 mg capsule TAKE 2 CAPSULES BY MOUTH ONE TIME START ON DAY 1 03/01 completed Not Available Not Available Not Available 19 (with docusate) 29 mg iron-1 mg-25 mg tablet 09/05 completed Not Available Not Available Not Available desvenlafa xine succinate ER 25 mg tablet,ext ended release 24 hr TAKE 1 TABLET BY MOUTH EVERY DAY active Not Available Not Available No t Available Saxenda 3 mg/0.5 mL (18 mg/3 mL) subcutaneo us pen injector active Not Available Not Available Not Available Trintellix 5 mg tablet Take 1 tablet every day by oral route. 04/07 completed Not Available Not Available Not Available Intrarosa 6.5 mg vaginal insert active Not Available Not Available Not Available Orilissa 150 mg tablet Take 1 tablet every day by oral route for 28 days. 08/30 completed Not Available Not Available Not Available Orilissa 200 mg tablet Take 1 tablet by mouth twice daily for 30 days active Not Available Not Available No t Available Imvexxy Starter Pack 10 mcg vaginal insert, dose pack active Not Available Not Available No t Available Imvexxy Maintenanc e Pack 10 mcg vaginal insert INSERT 1 SUPPOSIT ORY VAGINALL Y TWICE A WEEK active Not Available Not Available No t Available Vyleesi 1.75 mg/0.3 mL subcutaneo us auto-injec tor 07/24 completed Not Available Not Available Not Available Vitals Date Recorded Body mass index (BMI) Body height Oxygen saturation Oxygen saturation in Arterial blood by Pulse oximetry Heart rate Body temperature Body weight Systolic blood pressure Diastolic blood pressure Provider Name and Address Organization Details Last Updated DateTime 2 31.5 kg/m2 160.02 cm 98 % 98 % 85 /min 96.3 [degF] 04827.4 4 g 114 mm[Hg] 68 mm[Hg] Not Available [facility] 3 06:40:20 Date Recorded Body height Provider Name an d Address Organization Details Last Updated DateTime 05/13/2022 160.02 cm Not Available [facility] 3 06:40:23 Date Recorded Body height Body mass index (BMI) Body weight Body temperature Heart rate Oxygen saturation Oxygen saturation in Arterial blood by Pulse oximetry Systolic blood pressure Diastolic blood pressure Provider Name and Address Organization Details Last Updated DateTime 3 160.02 cm 31.3 kg/m2 11617.7 g 97.6 [degF] 87 /min 99 % 99 % 120 mm[Hg] 83 mm[Hg] ELLEN Matthew - [place] [employer] [facility] 3 08:24:19 Date Recorded Body height Body mass index (BMI) Body weight Body temperature Heart rate Oxygen saturation Oxygen saturation in Arterial blood by Pulse oximetry Systolic blood pressure Diastolic blood pressure Provider Name and Address Organization Details Last Updated DateTime 3 160.02 cm 31.2 kg/m2 24328.2 6 g 97.5 [degF] 90 /min 99 % 99 % 128 mm[Hg] 84 mm[Hg] Mulu Copeland MA [employer] 08:46:28 Social History Question Answer Notes LastModified by Organizat ion Details LastModified Time Tobacco Smoking Status Never Smoker Kaylie Jimy [email or web address] [employer] 01/16/2023 08:41:26 Do You Have An Advance Directive? No [id number] Information not available 05/22/2022 What Is Your Level Of Alcohol Consumption? Moderate [id number] Information not available 05/22/2022 Do You Wear A Helmet When Biking? Yes [email or web address] Information not available 01/16/2023 What Is Your Level Of Caffeine Consumption? Moderate [id number] Information not available 05/22/2022 How Much Tobacco Do You Chew? None [id number] Information not available 05/22/2022 What Type Of Diet Are You Following? REGULAR [id number] Information not available 05/22/2022 Which Illicit Or Recreational Drugs Have You Used? No [email or web address] Information not available 01/16/2023 Do You Or Have You Ever Used E-cigarettes Or Vape? Never Used Electronic Cigarettes [email or web address] Information not available 01/16/2023 What Is Your Occupation? Student Information not available 01/16/2023 Have There Been Any Changes To Your Family Or Social Situation? No [email or web address] Information not available 01/16/2023 Are There Any Guns Present In Your Home? No [email or web address] Information not available 01/16/2023 Do You Use Insect Repellent Routinely? No [email or web address] Information not available 01/16/2023 Where Do You Live? SingleLevelHouse [email or web address] Information not available 01/16/2023 Do You Have Any Pets? No [email or web address] Information not available 01/16/2023 Do You Use Your Seat Belt Or Car Seat Routinely? Yes [email or web address] Information not available 01/16/2023 Do You Have Smoke And Carbon Monoxide Detectors In Your Home? Yes Information not available 01/16/2023 Are You Passively Exposed To Smoke? No [email or web address] Information not available 01/16/2023 Do You Or Have You Ever Used Smokeless Tobacco? Never Used Smokeless Tobacco [id number] Information not available 05/22/2022 Are There Any Smokers In Your House? No [email or web address] Information not available 01/16/2023 How Much Tobacco Do You Smoke? No [id number] Information not available 05/22/2022 Do You Participate In Social Media? No [email or web address] Information not available 01/16/2023 Do You Feel Stressed (tense, Restless, Nervous, Or Anxious, Or Unable To Sleep At Night)? [id number] [email or web address] Information not available 01/16/2023 Do You Use Any Illicit Or Recreational Drugs? No [email or web address] Information not available 01/16/2023 Do You Use Sunscreen Routinely? No [email or web address] Information not available 01/16/2023 Have You Recently Traveled Abroad? No [email or web address] Information not available 01/16/2023 Do You Have Any Dietary Restrictions? No [email or web address] Information not available 01/16/2023 Sex: Unknown Functional Status Question Answer Note LastModified by Organizat ion Details LastModified Time What is your exercise level? Moderate [id number] Information not available 05/22/2022 Mental Status None recorded. Family History Nothing Reported. Medical History Condition Response DEPRESSION (INCLUDING POST ) Y Gynecological History Statement/Question Response STIs/STDs N Current Control Method IUD Breast Problems no Discharge no Obstetrics History GPAL:G 1 P 1 0 0 1 Type Value Full Term 1 Living 1 Total 1 Past Encounters Encounter ID Performer Location Encounter Start Date Encounter Closed Date Diagnosis/Indication Diagnosis SNOMED-CT Code Diagnosis ICD10 Code Diagnosis Note [id number] S[facility] Primary Care [facility] [address] [facility] [address] [place] [address] 06/07/2020 00:00:00 06/08/2020 08:10:56 [id number] S_G Primary Care [facility] [address] [facility] [address] [place] [address] 08/30/2020 00:00:00 09/19/2020 17:15:17 [id number] S_G Primary Care [facility] [address] [facility] [address] [place] [address] 09/27/2020 00:00:00 09/27/2020 08:24:06 [id number] [facility] [place] [address] [place] [address] 10/25/2020 00:00:00 10/25/2020 08:21:23 [id number] [facility] [place] [address] [place] [address] 10/31/2020 00:00:00 10/31/2020 09:04:50 [id number] [facility] [place] [address] [place] [address] 11/30/2020 00:00:00 11/30/2020 08:31:45 [id number] [facility] [place] [address] [place] [address] 03/01/2021 00:00:00 03/01/2021 08:28:59 [id number] [facility] [place] [address] [place] [address] 06/19/2021 00:00:00 06/19/2021 09:42:39 [id number] [facility] [place] [address] [place] [address] 07/19/2021 00:00:00 07/19/2021 18:29:21 [id number] [facility] [place] [address] [place] [address] 09/11/2021 00:00:00 09/11/2021 10:51:35 [id number] [facility] [place] [address] [place] [address] 12/14/2021 00:00:00 12/14/2021 10:49:11 [id number] [facility] [place] [address] [place] [address] 01/28/2022 00:00:00 01/28/2022 08:31:32 [id number] [facility] [place] [address] [place] [address] 05/13/2022 00:00:00 05/13/2022 20:31:31 [id number] [facility] [address] [place] [address] 09/13/2022 08:11:55 09/13/2022 16:22:27 Migraine 54236952 G43.909 Toradol injection given in office. She was also given samples of ubrelvy.Ad vised to take medication s as directed. Discussed good headache hygeine.F/ u if no improvemen t. Venereal d isease screening 567439841 Z11.3 Pt. requesting STD testing and testing for yeast. She states she is not concerned about any specific symptoms but just wants to be tested to make sure she does not have anything. HIV screening 673699657 Z11.4 [id number] JOAN Grady [facility] Primary Care [address] [place] [address] 01/16/2023 08:40:26 01/16/2023 09:07:29 Anxiety [id number] F41.9 -Was referred to psychiatri at the beginning of the year-Has not followed up with them since August-does not plan to go back to them-Had genetic testing through [facility] for antidepres sants, anti-anxio litics, and antipsycho tics-resul ts unknown-Sh e is wanting to restart her alprazolam for sleep-will hold off until review of records Insomnia [id number] G47.0 0 Has been an issue for approx 10 yearsPt has issues falling asleep/sta indira asleepdisc ussed good sleep hygiene, no electronic s within 1 hr of bedtimeshe has tried melatonin without reliefdisc ussed use of trazodone Contracept ion care management [id number] Z30.9 she is needing a refill on her medsHas been off meds for the last couples months, has had sexurine test given-nega tiverefill given Health Concerns Section Related Observation LastModified by Organization Detai ls LastModified Time None Recorded Concern Status LastModified by Organization Details LastModified Time None Recorded Advance Directives Directive N: Payers Encounter Date Sequence Insurance Name Policy Number Policy Andino Covered Member ID Andino Member ID Guarantor Name 09/13/2022 1 [place] [id number] Ana D Fitchett [id number] Ana D Fitchett 01/16/2023 1 [place] [id number] Ana D Fitchett [id number] Ana D Fitchett Notes Date Note Type Note Provider Name and Address Organization Details Recorded Time 09/13/2022 text/html Pt. has complain t of headache that will not go away, states she has it for about 2 weeks (started around 08/31/22). Has tried tylenol, excedrin, cool compresses. She was taking the medication regularly but it wasn't working so she stopped. States it is mild in the morning but then it will get gradually worse throughout the day. She states it is usually on the right side, but it travels. She states she does feel nauseous. [facility] [address] [facility] [employer], [place], [address], [employer] 09/13/2022 12:57:07 01/16/2023 text/html Pt is here to discuss anxiety JOAN Grady [address], [facility] [employer], [place], [address], [employer] 01/16/2023 09:53:52 OBGyn Episode No OBEpisode recorded.
--- OUTSIDE RECORDS SUMMARY | 2024-07-10 12:21 | XMS_ITS | Clinical Summary ---
Author Organization [facility] Address [address] [place] [address] Care Team Providers Care Oracle Database Consultant Name Role Phone Amelia Muñiz MD Primary Care Provider [phone] Source Comments [facility],non-owned Affiliates and Associated Physician Practices is amultiple site organization consisting of ambulatory clinics and hospital sitesin [place], [place], [place]. This disclosure is being madepursuant to the Care Everywhere program and may not contain all information available regarding this patient. Last updated 17.MyoKardia Allergies No known active allergies Medications * Be aware that medications may not be up to date on this document. Alwaysverify current medications with the patient. ALPRAZolam (XANAX) 0.5 MG tablet Take 0.5 mg by mouth as needed 11/26/2019 Active acetaminophen (Tylenol) 500 MG capsule Take 2 (two) capsules by mouth every 6 hours as needed for Fever or Pain 30 capsule 2 11/20/2021 Active ibuprofen (Motrin) 600 MG tablet Take 1 (one) tablet by mouth every 6 hours as needed for Pain 30 tablet 2 11/20/2021 Active oxyCODONE, immediate release, (Roxicodone) 5 MG tablet Take 1 (one) tablet by mouth every 6 hours as needed for Pain 20 tablet 11/20/2021 Active polyethylene glycol 3350 (Miralax) 17 GM/SCOOP powder Take 17 (seventeen) g by mouth once daily Hold for diarrhea 500 g 11/20/2021 Active norethindrone (Jencycla) 0.35 MG tablet Take 1 (one) tablet by mouth once daily 28 tablet 6 05/23/2022 Active Active Problems No known active problems [...] Sign Reading Time Taken Comments Blood Pressure 138/92 12/03/2021 3:13 PM CDT Pulse 62 11/20/2021 3:00 PM CDT Temperature 36.7 C (98.1 F) 11/20/2021 1:44 PM CDT Respiratory Rate 18 11/20/2021 3:00 PM CDT Oxygen Saturation 97% 11/20/2021 3:00 PM CDT Inhaled Oxygen Concentration - - Weight 85.7 kg (189 lb) 05/01/2022 11:24 AM MAINTENANCE DISPATCHER Height 160 cm (5' 3 ) 05/01/2022 11:24 AM MAINTENANCE DISPATCHER Body Mass Index 33.48 05/01/2022 11:24 AM MAINTENANCE DISPATCHER Plan of Treatment Health Maintenance Due Date Last Done Comments PAP SMEAR 1995 HIV SCREENING 2008 HEPATITIS C SCREENING 06/16/2011 DTAP/TDAP/TD VACCINES (1 - Tdap) 2012 HEPATITIS B VACCINE (1 of 3 - 19+ 3-dose series) 2012 COVID-19 VACCINE (1 - 2023-2 5 season) 2023 DEPRESSION SCREENING 03/24/2024 INFLUENZA VACCINE (Season Ended) 2024 ZOSTER VACCINE (1 of 2) 06/21/2043 HIB VACCINE Aged Out No longer eligi ble based on patient's age to complete this topic HPV VACCINE Aged Out No longer eligi ble based on patient's age to complete this topic MENINGOCOCCAL (Group B) VACC INE SHARED DECISION-MAKING Aged Out No longer eligibl e based on patient's age to complete this topic MENINGOCOCCAL GROUPS A/C/Y/W VACCINE Aged Out No longer eligible b ased on patient's age to complete this topic PNEUMOCOCCAL VACCINE Aged Out No long er eligible based on patient's age to complete this topic Medical Devices Implanted Type Area Pollution Control Technician Device Identifier Shelf Expiration Date Model / Serial / Lot Graft Tissue Amniofix Purion Amnio Membr Implanted:Qty: 1 on 11/20/2021 by Shon Amaro MD at [facility] N/A: Abdomen MiMedx 05/22/2026 [id number]-[id number] / / Graft Tissue Amniofix Purion Amnio Membr Implanted:Qty: 1 on 11/20/2021 by Shon Amaro MD at [facility] N/A: Abdomen MiMedx 05/22/2026 [id number]-5460 / / Insurance ANTHEM ANTHEM PAYOR GENERIC 11, [address] [place] [address] * Guarantor: SHAHEEN ALEJANDRO Account Type Relation to Patient Date of Phone Billing Address Personal/Family [phone] [address] Care Teams Oracle Database Consultant Relationship Specialty Start Date End Date Amelia Muñiz MD [address] [place] [address] PCP - General 10/01/19
--- OUTSIDE RECORDS SUMMARY | 2024-07-10 12:21 | XMS_ITS | Encounter Summary ---
Author Organization [facility] Address [address] [place] [address] Care Team Providers Care Technical Data Analyst Name Role Phone Amelia Muñiz MD Primary Care Provider [phone] Reason for Visit * Reason Onset Date Comments Discuss Surgery 05/31/2021 Question 05/31/2021 Encounter Details Date Type Department Care Team (Late st Contact Info) Description 05/31/2021 Telephone [facility] [address] [place] [address] Mona Griffiths Discuss Surgery; Question Social History Tobacco Use Types Packs/Day Years Used Date Smoking Tobacco: Never Smokeless Tobacco: Never Alcohol Use Standard Drinks/Week Comments Yes 0 (1 standard drink = 0.6 oz pur e alcohol) Comments No Sex and Gender Information Value Date Recorded Sex Assigned at Not on file Legal Sex Female 7:24 AM CDT Gender Identity Not on file Sexual Orientation Not on file documented as of this encounter Miscellaneous Notes * Telephone Encounter - Janie Ruiz RN - 05/31/2021 9:06 AM HUMANE AGENT RN returned call to pt. Per pt she was wanting to know who Dr. Martinez was and why she was being referred to see her from Dr. Snyder. RN explained Dr Martinez is pelvic pain specialist. Pt already scheduled for 07/[address] Martinez and this RN added appt to waitlist. No further questions NE AGENT * Telephone Encounter - Mona Griffiths - 05/31/2021 8:42 AM CST Contacted pt to discuss new surgery date, pt accepts next available and has further questions aboutwhy she needs to see the [facility]. Please advise? NE AGENT * Telephone Encounter - Mona Griffiths - 05/31/2021 8:42 AM CST ----- Message from Shon Amaro MD sent at 05/30/2021 4:33 PM HUMANE AGENT ----- Book surgery 6 month from today quick 1 hr case NE AGENT documented in this encounter Plan of Treatment Not on file documented as of this encounter Visit Diagnoses Not on filedocumented in this encounter Care Teams Technical Data Analyst Relationship Specialty Start Date End Date Amelia Muñiz MD [address] [place] [address] [place] [id number] PCP - General 10/01/19 documented as of this encounter
[2024-07-10 12:32] VITALS: BP 143/71; PULSE 83; RESP 16; TEMP 36.3; O2SAT 100
--- OUTSIDE RECORDS SUMMARY | 2024-07-10 13:30 | XMS_ITS | Clinical Summary ---
Author Organization [facility] Address [address] [place] [address] Care Team Providers Care Trimmer Press Clippings Name Role Phone Amelia Muñiz MD Primary Care Provider [phone] Source Comments [facility],non-owned Affiliates and Associated Physician Practices is amultiple site organization consisting of ambulatory clinics and hospital sitesin [place], [place], [place]. This disclosure is being madepursuant to the Care Everywhere program and may not contain all information available regarding this patient. Last updated 17.[facility] Allergies No known active allergies Medications * [...] 85.7 kg (189 lb) 05/01/2022 11:24 AM GAUGE MACHINE OPERATOR Height 160 cm (5' 3 ) 05/01/2022 11:24 AM GAUGE MACHINE OPERATOR Body Mass Index 33.48 05/01/2022 11:24 AM GAUGE MACHINE OPERATOR Plan of Treatment Health Maintenance Due Date [...] this topic Medical Devices Implanted Type Area Clinical Account Specialist Device Identifier Shelf Expiration Date Model / Serial / Lot Graft Tissue Amniofix Purion Amnio Membr Implanted:Qty: 1 on 11/20/2021 by Shon Amaro MD at [facility] N/A: Abdomen MiMedx 05/22/2026 [id number]-5460 / / Graft Tissue Amniofix Purion Amnio Membr Implanted:Qty: 1 on 11/20/2021 by Shon Amaro MD at [facility] N/A: Abdomen MiMedx 05/22/2026 AAS-5460 / / Insurance ANTHEM ANTHEM PAYOR GENERIC 11, [address] [place] [address] * Guarantor: SHAHEEN ALEJANDRO Account Type Relation to Patient Date of Phone Billing Address Personal/Family [phone] [address] Care Teams Trimmer Press Clippings Relationship Specialty Start Date End Date Amelia Muñiz MD [address] [place] [address] PCP - General 10/01/19
--- OUTSIDE RECORDS SUMMARY | 2024-07-10 13:30 | XMS_ITS | Encounter Summary ---
Author Organization [facility] Address [address] [place] [address] Care Team Providers Care Media Intern Name Role Phone Amelia Muñiz MD Primary Care Provider Reason for Visit * Reason Onset Date Comments Discuss Surgery 05/31/2021 Question 05/31/2021 Encounter Details Date Type Department Care Team (Late st Contact Info) Description 05/31/2021 Telephone [facility] [address] [place] [address] Mona Griffiths Discuss Surgery; Question Social History [...] Janie Ruiz RN - 05/31/2021 9:06 AM JR. JAVA DEVELOPER RN returned call to pt. Per pt she was wanting to know who Dr. Martinez was and why she was being referred to see her from Dr. Snyder. RN explained Dr Martinez is pelvic pain specialist. Pt already scheduled for 07/[address] Martinez and this RN added appt to waitlist. No further questions . JAVA DEVELOPER * Telephone Encounter - Mona Griffiths - 05/31/2021 8:42 AM CST Contacted pt to discuss new surgery date, pt accepts next available and has further questions aboutwhy she needs to see the Marcu. Please advise? . JAVA DEVELOPER * Telephone Encounter - Mona Griffiths - 05/31/2021 8:42 AM CST ----- Message from Shon Amaro MD sent at 05/30/2021 4:33 PM JR. JAVA DEVELOPER ----- Book surgery 6 month from today quick 1 hr case . JAVA DEVELOPER documented in this encounter Plan of Treatment Not on file documented as of this encounter Visit Diagnoses Not on filedocumented in this encounter Care Teams Media Intern Relationship Specialty Start Date End Date Amelia Muñiz MD [address] [place] [address] [place] [id number] PCP - General 10/01/19 documented as of this encounter
--- OUTSIDE RECORDS SUMMARY | 2024-07-10 13:30 | XMS_ITS | Encounter Summary ---
Author Organization [facility] Address [address] [place] [address] Care Team Providers Care Bioinformatics Programmer Name Role Phone Amelia Muñiz MD Primary Care Provider [phone] Reason for Visit * Reason Onset Date Comments POST-OP PROBLEM 01/28/2020 Encounter Details Date Type Department Care Team (Late st Contact Info) Description 01/28/2020 Telephone [facility] [address] [place] [address] Shon Amaro MD [address] [facility] [place] [phone] POST-OP PROBLEM Social History Tobacco Use Types [...] evaluation in the ED. Pt verbalizes understanding. COMMUNICATIONS PROJECT MANAGER * Telephone Encounter - Norah Bradley - 01/28/2020 1:20 PM CST Pt calling to see if she can get 1 or 2 days worth of the Oxycodone. Pt admits to not taking medication as she should. Psych doctor informed pt to reach out to MD. Pt's CB #: [phone] COMMUNICATIONS PROJECT MANAGER documented in this encounter Plan of Treatment Not on file documented as of this encounter Visit Diagnoses Not on filedocumented in this encounter Additional Health Concerns Infection Onset Date Last Indicated Resolved Time COVID-19 Under Investigation 02/08/2020 02/08/2020 02/09/2020 5:28 PM TELECOMMUNICATIONS PROJECT MANAGER COVID-19 Confirmed 02/08/2020 02/08/2020 0 4:35 AM TELECOMMUNICATIONS PROJECT MANAGER COVID-19 Under Investigation 07/19/2020 07/19/2020 07/20/2020 5:33 AM CDT documented as of this encounter Care Teams Bioinformatics Programmer Relationship Specialty Start Date End Date Amelia Muñiz MD [address] [place] [address] [place] [phone] PCP - General 10/01/19 documented as of this encounter
--- NOTE | 2024-07-10 14:06 | ED_ITS ---
HPI - General Adult General Chief complaint: Extremity Injury, Upper Stated complaint: Injury to left wrist-fell up the stairs Time Seen by Provider: 07/10/24 13:25 History of Present Illness HPI narrative: 29-year-old female presents to the emergency department for evaluation for left wrist pain. Patient reports that she tripped while walking up stairs and injured her left hand and wrist. Patient denies striking her head and denies any loss of consciousness. Related Data Home Medications ?Medication ?Instructions ?Recorded ?Confirmed ?Last Taken ?Type alprazolam 0.5 mg tablet 0.5 mg PO TID PRN Anxiety 06/28/19 08/10/19 08/03/19 History elagolix 200 mg tablet (Orilissa) 200 mg PO BID 06/28/19 08/10/19 08/09/19 History estradiol 10 mcg vaginal insert, 10 mcg vaginal DAILY 08/04/19 08/10/19 08/09/19 History in a starter dose pack (ImvexxMagma HQ Starter Pack) bupropion HCl 300 mg 24 hr tablet, 300 mg PO QAM 12/26/20 12/26/20 Unknown History extended release (Wellbutrin XL) duloxetine 60 mg capsule,delayed 60 mg PO DAILY 12/26/20 Unknown History release (Cymbalta) lisdexamfetamine 60 mg capsule 60 mg PO DAILY 12/26/20 Unknown History (Vyvanse) Allergies Allergy/AdvReac Type Severity Reaction Status Date / Time No Known Allergies Allergy Verified 07/10/24 13:51 Review of Systems Review of Systems: All systems reviewed & are unremarkable except as noted in HPI and below PMFSH Past Medical History Medical History (Updated 07/10/24 @ 14:10 by Vern Grewal MD) Depression Anxiety Social History Social History Gender identity (if verbalized by the patient): Female Exam Narrative: APPEARANCE: Well appearing, no pain, no distress, well-nourished. HEAD: normocephalic, atraumatic. EYES: PERRLA/EOMI, conjunctivae clear. NOSE: Normal no drainage EARS:TMS clear with good light reflex. THROAT: Pharynx clear, no exudate. NECK: Supple. No adenopathy, no masses. RESPIRATORY: Airway patent, respirations nonlabored. Clear to auscultation bilaterally, no rales, rhonchi, wheezing. CARDIOVASCULAR: Regular rate and rhythm without murmurs rubs or gallops. ABDOMINAL: Soft, nontender, nondistended, normal bowel sounds MUSCULOSKELETAL: Left wrist tenderness to palpation with no deformity neurovascularly intact NEURO: Alert. Cranial nerves II through XII intact. Good gait. Good coordination SKIN: Warm, dry. Normal Color Course Vital Signs Vital signs: Vital Signs Temperature 97.4 F L 07/10/24 12:32 Pulse Rate 83 07/10/24 12:32 Respiratory Rate 16 07/10/24 12:32 Blood Pressure 143/71 H 07/10/24 12:32 Pulse Oximetry 100 07/10/24 12:32 Temperature 97.4 F L 07/10/24 12:32 Pulse Rate 83 07/10/24 12:32 Respiratory Rate 16 07/10/24 12:32 Blood Pressure 143/71 H 07/10/24 12:32 Pulse Oximetry 100 07/10/24 12:32 Medical Decision Making MDM Narrative Medical decision making narrative: 29-year-old female presents to the emergency department for evaluation for left wrist pain after having a ground level fall. X-rays of left hand and wrist were negative. Differential Diagnosis Differential Diagnosis: Finger fracture, wrist fracture, hand fracture, wrist sprain Vital Signs Vital Signs: Vital Signs Temperature 97.4 F L 07/10/24 12:32 Pulse Rate 83 07/10/24 12:32 Respiratory Rate 16 07/10/24 12:32 Blood Pressure 143/71 H 07/10/24 12:32 Pulse Oximetry 100 07/10/24 12:32 Temperature 97.4 F L 07/10/24 12:32 Pulse Rate 83 07/10/24 12:32 Respiratory Rate 16 07/10/24 12:32 Blood Pressure 143/71 H 07/10/24 12:32 Pulse Oximetry 100 07/10/24 12:32 Imaging Data Radiologist's impression: Impressions Hand X-Ray 07/10/24 13:03 IMPRESSION: 1. No osseous abnormality at the left hand or wrist. Wrist X-Ray 07/10/24 13:03 IMPRESSION: 1. No osseous abnormality at the left hand or wrist. Discharge Plan Discharge Clinical Impression: Injury of wrist, Hand injury Patient Disposition: Home Condition: Stable Instructions: Antibiotic Form, Wrist Sprain (ED) Additional Instructions: Mikel wrap for comfort. Volar brace as needed for the next 3-5 days. Have close follow-up with your primary care physician. If you have any worsening symptoms then please call or return to the emergency department. Tylenol and ibuprofen for pain control. Ice therapy as directed. Patient Language: Polish Prescriptions: No Action alprazolam 0.5 mg tablet 0.5 mg PO TID PRN (Reason: Anxiety) Orilissa 200 mg tablet 200 mg PO BID Imvexxy Starter Pack 10 mcg Insert, Dose Pack 10 mcg VAGINAL DAILY bupropion HCl [Wellbutrin XL] 300 mg Tablet Extended Release 24 Hr 300 mg PO QAM duloxetine [Cymbalta] 60 mg Capsule,Delayed Release(Dr/Ec) 60 mg PO DAILY Vyvanse 60 mg Capsule 60 mg PO DAILY prochlorperazine maleate [Compazine] 10 mg tablet 10 mg PO Q6H PRN (Reason: nausea and vomiting) Qty: 10 0RF diphenhydramine HCl 50 mg capsule 50 mg PO QID PRN (Reason: itching) Qty: 14 0RF famotidine [Pepcid] 40 mg tablet 40 mg PO DAILY Qty: 7 0RF cefixime [Suprax] 400 mg capsule 400 mg PO DAILY 7 Days Qty: 7 0RF cephalexin 500 mg capsule 500 mg PO Q8H 7 Days Qty: 21 0RF Follow-up/Referrals: PHYSICIAN,PATTERN PERFORATING MACHINE OPERATOR [Primary Care Provider] -
== END 2024-07-10 14:23 | disposition home or self-care (01) ==
PROVIDERS: Emergency Provider Emergency Medicine
DX: M25.532 Pain in left wrist (principal); S69.92XA Unspecified injury of left wrist, hand and finger(s), initial encounter; W18.43XA Slipping, tripping and stumbling without falling due to stepping from one level to another, initial encounter; F41.8 Other specified anxiety disorders
CPT/HCPCS: 73110; 73130; 99283